=== PATIENT | male | born 1945 | race Caucasian/White ===

== ENCOUNTER 2022-01-11 19:35 | Outpatient (REF) | payer MEDICARE, SELFPAY ==
[2022-01-11 21:50] LABS: ESR 62 mm/hr (0-20)
[2022-01-11 21:51] LABS: Abs Immature Grans 0.01 10^3/uL (0.0-0.06); Absolute Basophil Count 0.04 10^3/uL (0.0-0.2); Absolute Eosinophil Count 0.19 10^3/uL (0.0-0.7); Absolute Lymphocyte Count 1.06 10^3/uL (1.2-3.4); Absolute Monocyte Count 0.56 10^3/uL (0.1-0.8); Absolute Neutrophil Count 2.86 10^3/uL (1.2-6.7); Basophils % 0.8; HCT 32.9 % (40.0-50.0); HGB 10.5 g/dL (13.5-17.5); Immature Grans % 0.2; Lymphocytes % 22.5; MCH 28.8 pg (27.0-33.0); MCHC 31.9 % (32.0-36.0); MCV 90 fL (80-95); Monocytes % 11.9; Neutrophils % 60.6; Platelet Count 250 10^3/uL (130-400); RBC 3.64 10^6/uL (4.36-5.78); RDW 13.2 % (11.8-14.1); RDW-SD 43.8 fL; WBC 4.72 10^3/uL (4.4-10.8)
[2022-01-11 22:19] LABS: ALT 25 U/L (16-63); AST 29 U/L (15-37); Albumin 3.1 g/dL (3.4-5.0); Alkaline Phosphatase 144 U/L (46-116); Anion Gap 8.4 mmol/L (3-11); BUN 18 mg/dL (7-18); Bilirubin, Direct 0.1 mg/dL (0.0-0.2); Bilirubin, Total 0.3 mg/dL (0.2-1.0); CO2 27.6 mmol/L (21.0-32.0); CREATININE 0.9 mg/dL (0.70-1.30); Calcium 8.4 mg/dL (8.5-10.1); Chloride 103 mmol/L (98-107); Estimated GFR 89.07 (mL/min/1.73m2); Glucose 102 mg/dL (74-106); Potassium 4.2 mmol/L (3.5-5.1); Sodium 139 mmol/L (136-145); Total Protein 6.5 g/dL (6.4-8.2)
[2022-01-12 17:40] LABS: CRP, High Sensitivity >15.00 mg/L (See Note)
== END 2022-01-11 19:36 | disposition home or self-care (01) ==
LOC: LBN 19:35
DX: K65.1 Peritoneal abscess (principal)
CPT/HCPCS: 80048; 80076; 85652; 86141; 85025

== ENCOUNTER 2024-06-30 15:24 | Emergency (ER) | payer MEDICARE, BC, SELFPAY ==
[2024-06-30] VITALS (9 sets, daily range): BP systolic 129–146; BP diastolic 74–83; PULSE 62–68; RESP 5–18; TEMP 35.9; O2SAT 95–99
--- NOTE | 2024-06-30 16:00 | DI.RAD_ITS ---
Exam(s) XR CHEST 2V PA LATERAL EXAM: XR CHEST 2V PA LATERAL CLINICAL HISTORY: fall skiing, syncope. TECHNIQUE: 2D digital imaging was performed. COMPARISON: No exams were available for comparison FINDINGS: 2 views: Heart size is normal. The mediastinum is not widened. Lungs are clear. No infiltrates nor pleural effusions. IMPRESSION: No acute pulmonary findings. DATA REPOSITORY: RADIATION DOSE DELIVERED:
--- NOTE | 2024-06-30 16:00 | DI.CT_ITS ---
Exam(s) CT HEAD CERVICAL SPINE WO EXAM: CT HEAD CERVICAL SPINE WO CLINICAL HISTORY: fall skiing, pain. TECHNIQUE: Imaging Protocol: Axial computed tomography images with coronal and sagittal reformatted images were created and reviewed COMPARISON: No exams were available for comparison FINDINGS: BRAIN: There are no skull fractures nor fluid in the visualized paranasal sinuses. There is no evidence of intracranial hemorrhage, mass effect, or shift of midline structures. There are no extra-axial fluid collections. The ventricles are not enlarged or shifted and there is no blo od within the ventricular system nor within the basal cisterns. CERVICAL SPINE: No evidence of acute fracture. There is multilevel chronic disc space narrowing at C4-5, C5-6, and C 6-7 levels. There is mild degenerative anterolisthesis of C4 upon C5 due to facet arthrosis. There are bilateral Luschka joint osteophytes at the lower 3 levels. Multilevel facet joint degenerative changes. There is no significant facet joint malalignment. No significant osseous lesions evident. IMPRESSION: No acute intracranial findings on this noninfused CT scan of the brain. No evidence of cervical spine fracture, malalignment, nor acute compromise of the cervical spinal can al. Multilevel degenerative facet arthropathy and multilevel degenerative disc disease. Called by myself to ER physician 06/30/2024 at 4:45 p.m. RADIATION DOSE DELIVERED: 1,325.73mGy.cm Total DLP DATA REPOSITORY: All CT scans at this facility are submitted to the National Radiology Data Registry (NRDR) Dose Index Registry (DIR) with the [employer] ([employer]). RADIATION OPTIMIZATION: All CT scans at this facility use at least one of these dose optimization te chniques: automated exposure control; mA and/or kV adjustment per patient size (includes targeted exa ms where dose is matched to clinical indication); or iterative reconstruction.
--- NOTE | 2024-06-30 16:00 | RT.EKG_ITS ---
APPROVED REPORT Exam: Resting ECG Reason for Exam: syncope Patient Location: E HR:62 bpm ECG Measurements Heart Rate 62 AXIS MT 209 P 46 QRSd 86 QRS -5 QT 425 T 21 QTc 430 Conclusion Sinus rhythm...normal P axis, V-rate 60- [address] elevation, anterior leads...ST >0.15mV in V1-V4
--- NOTE | 2024-06-30 16:02 | ED.GENADUL_ITS ---
Discharge Plan Disposition Patient Disposition: Home Condition: Stable Discharge Details Clinical Impression: Accidental fall from skis, Concussion Primary Care Provider: Jena,Local ED Provider: Bobby Reed Discharge Instructions Additional Instructions: Your blood work and imaging did not show any concerning findings at this time. I would recommend taking it easy for a few days. If you are having symptoms this week I would recommend following up with your primary care provider. If you feel more ill or have new symptoms such as severe chest pain or difficulty breathing return to the emergency department for reevaluation. HPI General Mode of arrival: ambulatory . Date/Time Provider Initiated Documentation: 06/30/24 15:30 . Limitations to Documentation: no limitations . Information obtained by: patient . History of Present Illness 78 year old M presents to the emergency department with the chief complaint of passed out skiing, described as moderate, Patient started experiencing this hour(s) (1) and it has been now resolved. No relieving factors improve symptom(s), No exacerbating factors reported . Patient notes denies chest pain, fever/chills and shortness of breath. Patient did receive the following treatments prior to arrival, none General Stated Complaint: HeadInjury JOANN: 3 Review of Systems All systems reviewed & are unremarkable except as noted in HPI and below Constitutional Constitutional: Denies chills, Denies fever(s) and Denies weakness Cardiovascular Cardiovascular: Denies chest pain, Denies dyspnea and Reports other (syncope) Respiratory Respiratory: Denies cough and Denies dyspnea Gastrointestinal Gastrointestinal: Denies abdominal pain, Denies nausea and Denies vomiting Neurologic Neurologic: Denies weakness Exam Const General: no acute distress Orientation: alert HENMT Head: normal to inspection Ears: external ears normal and TM's normal bilaterally General nose exam: external nose normal Mouth: moist mucous membranes Eyes General: appearance normal, both eyes and all related structures Neck Neck: full ROM and tender Resp Effort & Inspection: normal respiratory effort and able to speak in complete sentences Auscultation: clear to auscultation bilaterally Cardio Jugular venous pressure: no JVD Rate: regular rate Skin General skin exam: no rashes or lesions noted Neuro General: patient alert and patient oriented x3 Extrem General: normal to inspection Psych Mental Status: mental status grossly normal Course Vital Signs Vital signs: Vital Signs Temperature 35.9 C L 06/30/24 15:25 Pulse 62 06/30/24 15:25 Respiratory Rate 16 06/30/24 15:25 Blood Pressure 146/83 H 06/30/24 15:25 Pulse Oximetry 98 06/30/24 15:25 Temperature 35.9 C L 06/30/24 15:25 Pulse 62 06/30/24 15:25 Respiratory Rate 16 06/30/24 15:25 Blood Pressure 146/83 H 06/30/24 15:25 Pulse Oximetry 98 06/30/24 15:25 Medical Decision Making 78-year-old male who has a history of high blood pressure otherwise normally healthy comes in after he states he was skiing at [employer] and was going down a run when he lost consciousness and went down embankment. He woke up to people trying to wake him up. There was no reported seizure-like activity. There was no signs of trauma to the helmet. He has a mild frontal headache and also bilateral paraspinous neck muscle pain. He denies ever having any chest pain, difficulty breathing, no back pain. No abdominal pain. He is well-appearing on exam, he has no neurological deficits noted, pupils are equal and reactive to light. No hemotympanum. He has no midline C-spine tenderness. It sounds like he likely did have a syncope, given this we will check a CBC, CMP, troponins and EKG keep on telemetry. Will also obtain a CT head and C-spine given the fall and headache and neck pain. Patient's labs unremarkable, CT head and C-spine and chest x-ray show no acute findings. He is stable and feels well. Delta troponin pending, if this is negative I feel he can be discharged and follow-up with his PCP Patient continues to be asymptomatic and stable, second troponin negative. Given reassuring workup I feel he can be discharged to follow-up with his PCP, return precautions given. Differential Diagnosis Differential Diagnosis: Syncope, concussion, anemia Lab Data Lab results reviewed: Yes I reviewed the patient's lab results. ECG Data Attestation: I personally reviewed and interpreted this ECG (s) as follows: Prior ECG tracings: not available for review Interpretation: sinus rate of 62 no stemi Quality:SDOH Health Related Social Needs: No Data to Display PFSH All Active Problems (Updated 06/30/24 @ 17:26 by Bobby Reed MD) Concussion (Acute) Accidental fall from skis (Acute) Social History Smoking/Tobacco Use Status: Never Smoking risk assessment performed?: Yes Alcohol Intake: current Alcohol Intake frequency: a few times a week Drug use: Never Substance use type: does not use PAWSS Have you Been Recently Intoxicated or Drunk Within the Last 30 days?: No Have you Ever Experienced Previous Episodes of Alcohol Withdrawal?: No Have you ever Experienced Withdrawal Seizures?: No Have you ever Experienced Delirium Tremens(DT)s?: No Have you ever undergone Alcohol Rehabilitation Treatment (i.e, inpt ot outpatient treatment programs)?: No Have you ever Experienced Blackouts?: No Have you ever Combined Alcohol with any other Substance of Abuse during the last 90 days?: No Evidence of Increased Autonomic Activity (i.e. HR>120, tremor, sweating, agitation, nausea)?: No Result: 0
[2024-06-30 16:16] LABS: Abs Immature Grans 0.02 10^3/uL (0.0-0.06); Absolute Basophil Count 0.02 10^3/uL (0.0-0.2); Absolute Eosinophil Count 0.04 10^3/uL (0.0-0.7); Absolute Lymphocyte Count 0.98 10^3/uL (1.2-3.4); Absolute Monocyte Count 0.58 10^3/uL (0.1-0.8); Absolute Neutrophil Count 5.28 10^3/uL (1.2-6.7); Basophils % 0.3 %; Eosinophils % 0.6 %; HCT 40.3 % (40.0-50.0); HGB 13.4 g/dL (13.5-17.5); Immature Grans % 0.3 %; Lymphocytes % 14.2 %; MCH 29.8 pg (27.0-33.0); MCHC 33.3 % (32.0-36.0); MCV 90 fL (80-95); MPV 10.9 fL (8.0-11.0); Monocytes % 8.4 %; Neutrophils % 76.2 %; Platelet Count 193 10^3/uL (130-400); RBC 4.49 10^6/uL (4.36-5.78); RDW 13.3 % (11.8-14.1); WBC 6.92 10^3/uL (4.4-10.8)
[2024-06-30 16:34] LABS: ALT 38 U/L (16-63); AST 36 U/L (15-37); Albumin 3.9 g/dL (3.4-5.0); Alkaline Phosphatase 62 U/L (46-116); Anion Gap 5.6 mmol/L (3-11); BUN 18 mg/dL (7-18); CO2 30.4 mmol/L (21.0-32.0); Chloride 104 mmol/L (98-107); Estimated GFR 77.52 (mL/min/1.73m2); Glucose 90 mg/dL (74-106); Magnesium 1.9 mg/dL (1.8-2.4); Potassium 3.8 mmol/L (3.5-5.1); Sodium 140 mmol/L (136-145); Total Protein 7.2 g/dL (6.4-8.2); Troponin I 11 ng/L (<or=76)
[2024-06-30 17:49] LABS: Troponin I 11 ng/L (<or=76)
== END 2024-06-30 18:28 | disposition home or self-care (01) ==
PROVIDERS: Emergency Provider Emergency Medicine
DX: S06.0X0A Concussion without loss of consciousness, initial encounter (principal); W00.0XXA Fall on same level due to ice and snow, initial encounter; Y93.23 Activity, snow (alpine) (downhill) skiing, snowboarding, sledding, tobogganing and snow tubing; Y92.838 Other recreation area as the place of occurrence of the external cause
CPT/HCPCS: 36415; 80053; 93005; 99285; 70450; 71046; 72125; 83735; 84484; 85025; 93010; 99284